=== PATIENT | male | born 1955 | race Caucasian/White ===

== ENCOUNTER 2017-05-06 15:01 | Emergency (ER) | payer MEDICARE ==
[~2017-05-06] VITALS: Ht 182.9 cm; Wt 154.6 kg
[~2017-05-06 15:01] MED LIST: ASPI81TA2 PO; FES300 PO; FISH1CAP16 PO; FLUN25SP NS; FLUO60TA PO; FURO-3 PO; GLIPIZIDE PO; HYDR-3479 PO; IPRA0.2S6 HHN; LISI40TA PO; LOP100 PO; METF1000 PO; ProAirHFA IH; ROSU40TA PO; SPIRONALACTONE PO; SYMINH INH; SYN.1T2 PO
[2017-05-06 15:05] VITALS: BP 169/100; PULSE 76; RESP 17; O2SAT 92
--- NOTE | 2017-05-06 16:46 | DRSVH ---
PROCEDURE: X-RAY CHEST, TWO VIEWS ([id number]) INDICATIONS: cough, sob, on 02 TECHNIQUE: 2 views of the chest were acquired. COMPARISON: None. FINDINGS: Surgical changes and devices: None. Lungs and pleura: No pleural effusions or pneumothorax. There is a slight appearance of increased pu lmonary vascularity versus faint patchy opacities particularly in the right base. Mediastinum: Mediastinal contours are normal. Heart size is normal. Bones and chest wall: No suspicious bony abnormalities. Soft tissues appear unremarkable. IMPRESSION: An appearance of increased pulmonary vascularity versus patchy opacity within the right b ase which could represent focal edema versus developing airspace disease such as pneumonia. Dictated by: Nichelle Contreras M.D. on 05/06/2017 at 16:44 Approved by: Nichelle Contreras M.D. on 05/06/2017 at 16:45
[2017-05-06] MEDS ORDERED: HYDROcodone-APAP 5-325 mg Tablet PO ONE (17:10)
--- NOTE | 2017-05-06 18:53 | ED.REPORT ---
HPI-Dyspnea / Wheezing Date of Service May 06, 2017 ED Provider: Dr. Sam Phan MD A 61 year old male with a history of COPD presents to the ED complaining of non- cardiac chest pain that began yesterday. Patient believes that the pain is associated with a cough. His symptoms have been constant and persistent since onset. He also reports experiencing subjective fever, SOB and vomiting. He is typically on 2% home O2. Nursing Notes Stated Complaint: BAD COUGH Chief Complaint: Respiratory Complaints Nursing Notes Reviewed: Yes Allergies: Coded Allergies: colchicine (Verified Allergy, Severe, SEVERE N&V, 05/06/17) Uncoded Allergies: bee stings (Allergy, Unknown, UNKNOWN, 04/15/13) Scheduled ([Spironalactone]) 25 MG PO DAILY Albuterol-Expunged Drug, Do Not Renew! (Albuterol-Expunged Drug, Do Not Renew!) 200 Puff/8.5 Gm Hfa.aer.ad 1-2 PUFF IH PRN Aspirin-Expunged Drug, Do Not Renew! (Aspirin-Expunged Drug, Do Not Renew!) 81 Mg Tab 81 MG PO DAILY Rfchv-Ewdtnq-Cwjhyvqv Drug, Do Not Renew! (Symbicort 160/4.5mcg-Expunged Drug, Do Not R) 1 Puff Inha 2 PUFF INH BID PRIME WITH 1 PUMP PRIOR TO INITIAL USE. *SHAKE WELL* RINSE MOUTH AFTER EACH USE* FISH OIL/BORAGE/FLAX/OM3,6,9#1-Expunged, Do N (OMEGA 3-6-9 COMP-Expunged, Do Not Renew!) 1 Each Capsule 1 EACH PO DAILY FLUoxetine-Expunged Drug, Do Not Renew! (FLUoxetine-Expunged Drug, Do Not Renew! ) 60 Mg Tablet 60 MG PO DAILY Ferrous Sulfate-Expunged Drug, Do Not Renew! (Feosol-Expunged Drug, Do Not Renew !) 325 Mg Tablet 325 MG PO DAILY Flunisolide-Expunged Drug, Do Not Renew! (Flunisolide-Expunged Drug, Do Not Renew!) 25 Ml [place] 25 ML NS DAILY Furosemide-Expunged Drug, Do Not Renew! (Furosemide-Expunged Drug, Do Not Renew! ) 40 Mg Tablet 80 MG PO DAILY Hydrocod/APAP-Expunged, Do Not Renew! (VICODIN 5/300-Expunged Drug, Do Not Renew ) 1 Each Tablet 1 EACH PO PRN Ipratropium-Expunged Drug, Do Not Renew! (Ipratropium-Expunged Drug, Do Not Renew!) 2.5 Ml Soln 2.5 ML HHN DAILY Levofloxacin (Levaquin) 750 Mg Tablet 750 MG PO DAILY Levothyroxine-Expunged Drug, Do Not Renew! (Synthroid-Expunged Drug, Do Not Renew!) 100 Mcg Tablet 100 MCG PO DAILYAC 0.1 MG = 100 MCG Lisinopril-Expunged Drug, Do Not Renew! (Lisinopril-Expunged Drug, Do Not Renew! ) 40 Mg Tablet 40 MG PO BID Metformin-Expunged Drug, Do Not Renew! (Metformin-Expunged Drug, Do Not Renew!) 1,000 Mg Tablet 1,000 MG PO BID Metoprolol Tart-Expunged Drug, Do Not Renew! (Metoprolol Tart-Expunged Drug, Do Not Renew!) 100 Mg Tablet 100 MG PO BID Rosuvastatin-Expunged Drug, Do Not Renew! (Crestor-Expunged Drug, Do Not Renew! ) 40 Mg Tablet 40 MG PO HS glipiZIDE-Expunged Drug, Do Not Renew! (glipiZIDE-Expunged Drug, Do Not Renew!) 5 Mg Tablet 10 MG PO BID Scheduled PRN Ibuprofen (Ibuprofen) 800 Mg Tablet 800 MG PO TID PRN PRN For Pain General Time Seen by MD: 16:00 Chief Complaint Chest pain Hx Obtained From: Patient Arrived By: Walk-in Sudden in Onset?: No Onset Occurred: Yesterday Symptom Duration: Since onset Location: : Chest left: Chest right Quality: Painful Radiation: : Does not radiate Severity: Current: Moderate Severity: Maximum: Moderate Associated with: Reports: Chest pain, Cough, Fever, Vomiting Pertinent Negative: Pt denies other symptoms Recent Healthcare: No recent doctor visit, No recent hospitalization Past Medical History Past Medical History COPD 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 Smoking History Former Smoker Social History Alcohol Use: Denies alcohol use Drug Use: Denies drug use Other Social History: , Local resident Occupation one story house Ambulatory Status Independent Review of Systems Constitutional: Reports: Fever Cardiovascular: Reports: Chest pain Complete sys rev & neg: except as marked. GI: Reports: Vomiting Physical Exam Initial Vital Signs Vital Signs (First) Date Time Temp Pulse Resp B/P Pulse Ox O2 Delivery O2 Flow Rate FiO2 05/06/17 15:05 36.7 76 17 169/100 92 Room Air 05/06/17 18:56 2 Initial VS: Reviewed Head / Eyes: Atraumatic, Normocephalic, PERRL Extremities: Vascular intact, Neuro intact, No swelling, No tenderness Skin: Warm, Dry, No cyanosis Neurologic: Alert, Oriented, Nonfocal Psychiatric: Mood/affect normal, Behavior normal, Normal thought content General/Constitutional: Awake, Alert, No acute distress, Well appearing, Well developed Neck: Atraumatic, Supple Respiratory / Chest: Atraumatic, No respiratory distress Diminished Breath Sounds: Positive: Decreased R Cardiovascular: Heart rate NL, Regular rhythm, Heart sounds NL, No murmurs Abdomen: Atraumatic, Soft, Non-tender Interpretation & Diagnostics Lab Results Interpretation Result Diagram: 05/06/17192405/06/171924 Test 05/06/17 19:25 White Blood Count 13.0th/mm3 (3.8-10.1) Red Blood Count 4.54mil/mm3 (4.40-5.80) Hemoglobin 13.0g/dL (13.8-17.2) Hematocrit 40.0% (41.0-50.0) Mean Corpuscular Volume 88.1fL (81-100) Mean Corpuscular Hemoglobin 28.6pg (27.0-35.0) Mean Corpuscular Hemoglobin Concent 32.5% (32.0-37.0) Red Cell Distribution Width 15.8% (12.3-15.4) Platelet Count 330bil/L (150-400) Neutrophils (%) (Auto) 77.8% (40-74) Lymphocytes (%) (Auto) 15.4% (14-46) Monocytes (%) (Auto) 3.5% (4-12) Eosinophils (%) (Auto) 2.4% (0-5) Basophils (%) (Auto) 0.3% (0-3) D-Dimer 0.55mg/L FEU (<0.50) Sodium Level 136mEq/L (134-144) Potassium Level 4.1mEq/L (3.5-5.2) Chloride Level 90mEq/L (97-108) Carbon Dioxide Level 29mmol/L (18-29) Blood Urea Nitrogen 8mg/dL (8-27) Creatinine 0.78mg/dL (0.76-1.27) Estimat Glomerular Filtration Rate 108mL/min (>59) Glucose Level 150mg/dL (60-99) Calcium Level 9.8mg/dL (8.5-10.1) Total Bilirubin 0.3mg/dL (0.0-1.2) Aspartate Amino Transf (AST/SGOT) 16U/L (0-50) Alanine Aminotransferase (ALT/SGPT) 12U/L (0-44) Alkaline Phosphatase 115U/L (25-160) Troponin T < 0.010ug/L (0.0-0.011) Total Protein 7.4g/dL (6.4-8.4) Albumin 3.8g/dL (3.4-5.0) Hold Deras Top Tube Received (Received) ECG Interpretation ECG Interpretation: Sinus Rhythm Rate [address] elevation Rate RBBB No ST elevation Time: 19:08 Interpreted by: ED physician X-Ray Chest Interpretation Chest Xray Interpretation: IMPRESSION: An appearance of increased pulmonary vascularity versus patchy opacity within the right base which could represent focal edema versus developing airspace disease such as pneumonia. Dictated by: Nichelle Contreras M.D. on 05/06/2017 at 16:44 CT Chest Interpretation IMPRESSION: 1. No acute pulmonary embolus. 2. Trace pulmonary radiopacities the right lung base. This likely represents mild aspiration or infection. Short interval followup recommended to ensure resolution of this finding and exclude pulmonary pathology. Dictated by: Angelica Cohen M.D. on 05/06/2017 at 21:06 Study type: CT pulm angiogram Interpretation / Wet Read by: Interpret - Radiologist Re-Eval/Medical Decision Med Decision/Clinical Course 61-year-old male with history of COPD presenting with left chest pain 1 day. He reports it started when he was coughing. He has had a recent cough. Denies any fevers. He has a right lower lobe pneumonia. His oxygen is at his baseline. His labs are unremarkable. D-dimer was elevated. CT angio chest no PE. Chest pain is reproducible on exam. Likely musculoskeletal after coughing. He will be treated for pneumonia. Return precautions given. Follow up with primary doctor 1-2 days. Re-Evaluation/Progress : Time of Eval: 21:40 Patient Status: Condition improved Re-Evaluation/Progress Note: Patient is rechecked. His pain is significantly improved. He is informed of his results and diagnosis. All questions about the intended treatment plan are addressed. He understands and agrees with the plan. Counseled Regarding: Diagnosis, Lab results, Need for follow-up, When/why to return to ED Discharge & Departure Impression: Primary Impression: Pneumonia Pneumonia type: due to unspecified organism Laterality: right Lung location : unspecified part of lung Qualified Code: J18.9 - Pneumonia, unspecified organism Disposition: Home Discharge Condition All VS Reviewed: Yes Condition: Improved Patient Instructions: Community Acquired Pneumonia (ED) Additional Instructions: Thank you for trusting us with your care this evening. Your emergency department results including lab work, EKG, chest x-ray and chest CT are indicative of pneumonia and I believe that this is the likely cause fo your symptoms. There is no evidence of any dangerous cause for concern at this time. Please take the full course of Levaquin as directed. Take 800 mg of ibuprofen every 8 hours as needed for pain. Schedule a follow up appointment with your primary care physician in the next 2- 3 days for a recheck. Please return to the emergency department if you begin to develop any new or worsening conditions including any shortness fo breath, worsening cough, high fevers, shaking chills, weakness or lightheadedness. [facility] Olga Attestation Portions of this note were transcribed by Alen Alexandre. I, Dr. Phan personally performed the history, physical exam and medical decision-making; I reviewed and confirmed the accuracy of the information in the transcribed note. Signed by: Olga Waldrop, 05/06/17 2201. copies to: [facility] Sam Phan MD May 06, 2017 18:53 ALEN ALEXANDRE May 06, 2017 21:37
[2017-05-06 18:56] VITALS: BP 154/79; PULSE 75; RESP 20; O2SAT 91
[2017-05-06 19:34] LABS: BASOPHILS % (AUTO) 0.3 % (0-3); EOSINOPHILS % (AUTO) 2.4 % (0-5); MONOCYTES % (AUTO) 3.5 % (4-12); Mean Corpuscular Hemoglobin 28.6 pg (27.0-35.0); Mean Corpuscular Volume 88.1 fL (81-100); NEUTROPHILS % (AUTO) 77.8 % (40-74); Platelet Count 330 bil/L (150-400)
[2017-05-06 19:54] LABS: TROPONIN T < 0.010 ug/L (0.0-0.011)
[2017-05-06 19:57] VITALS: BP 154/95; PULSE 81; RESP 17; O2SAT 92
--- NOTE | 2017-05-06 21:10 | DRSVH ---
PROCEDURE: CT ANGIO CHEST PULMONARY EMBOLISM ([id number]) INDICATIONS: dyspnea elevated ddimer TECHNIQUE: After the administration of intravenous contrast, 2 mm thick sections acquired from the pulmonary api cam to the posterior costophrenic angles. 3-dimensional maximum intensity projection (MIP) coronal a nd sagittal reformats were then acquired through the thorax. For radiation dose reduction, the follo wing was used: automated exposure control, adjustment of mA and/or kV according to patient size. COMPARISON: None. FINDINGS: Image quality: Excellent. Pulmonary arteries: Pulmonary arteries are normal in size, and demonstrate no intraluminal filling d efects to suggest central pulmonary embolism. Lungs and pleura: Mild patchy pulmonary opacities are present at the right lung base. The lungs are o therwise clear. No pleural effusions or pneumothorax. Central and peripheral airways are patent. Mediastinum: Heart size is normal, without pericardial effusion. No mediastinal or hilar adenopathy . Thoracic aorta is normal in caliber and enhancement. Scattered atheromatous calcifications are pre sent within the aortic arch. Esophagus is normal in caliber, without hiatal hernia. Bones and chest wall: No suspicious bony lesions. Ribs and thoracic spine appear intact throughout. Thyroid gland is unremarkable where visualized. No axillary or supraclavicular adenopathy. Abdomen: Visualized upper abdominal solid organs appear normal in the early arterial phase of enhanc ement. IMPRESSION: 1. No acute pulmonary embolus. 2. Trace pulmonary radiopacities the right lung base. This likely represents mild aspiration or infec tion. Short interval followup recommended to ensure resolution of this finding and exclude pulmonary pathology. Dictated by: Angelica Cohen M.D. on 05/06/2017 at 21:06 Approved by: Angelica Cohen M.D. on 05/06/2017 at 21:08
[2017-05-06] MEDS ORDERED: IBUP800T28 PO (22:03)
[2017-05-06] MEDS ORDERED: LEVO750T9 PO (22:03)
[2017-05-06] MEDS ORDERED: levoFLOXacin 750 mg Tablet PO ONE (22:05)
[2017-05-06 22:24] VITALS: BP 148/92; PULSE 83; RESP 20; O2SAT 93
== END 2017-05-06 22:24 | disposition home or self-care (01) ==
LOC: AIC 15:01 → SED 22:24
DX: J18.9 Pneumonia, unspecified organism (principal); R50.9 Fever, unspecified; R11.10 Vomiting, unspecified; J44.9 Chronic obstructive pulmonary disease, unspecified; J45.909 Unspecified asthma, uncomplicated; Z87.891 Personal history of nicotine dependence; Z88.3 Allergy status to other anti-infective agents
CPT/HCPCS: 36415; 71020; 71275; 80053; 84484; 85025; 85378; 93005; 96374; 99285; J2270; Q9967